=== PATIENT | male | born 1960 | race African-American/Black ===

== ENCOUNTER 2024-06-20 08:44 | Emergency (ER) | payer MEDICARE, MEDICAID ==
[~2024-06-20] VITALS: Ht 177.8 cm; Wt 81.6 kg
[2024-06-20 08:47] VITALS: O2SAT 98
[2024-06-20 09:06] VITALS: BP 123/78; PULSE 98; RESP 16; TEMP 36.8; O2SAT 99
[2024-06-20 09:33] LABS: BASOPHILS % 0.4 % (0.0-2.0); EOSINOPHILS % 0.1 % (0.0-5.0); HEMATOCRIT. 43.2 % (42.0-52.0); HEMOGLOBIN. 14.5 g/dL (14.0-18.0); LYMPHOCYTES % 18.3 % (20.0-50.0); MEAN CORPUSCULAR HEMOGLOBIN 29.9 pg (28.0-32.0); MEAN CORPUSCULAR HGB CONC 33.7 g/dL (31.0-37.0); MEAN CORPUSCULAR VOLUME 88.8 fL (80.0-94.0); MEAN PLATELET VOLUME 8.7 fl (7.4-10.4); MONOCYTES % 8.1 % (2.0-8.0); NEUTROPHILS % 73.1 % (40.0-76.0); PLATELET 263 x1000/uL (130-400); RED BLOOD CELL COUNT 4.86 mill/uL (4.7-6.1)
[2024-06-20 09:45] LABS: CHLORIDE 105 mEq/L (98-107); POTASSIUM 4.3 mEq/L (3.5-5.1); SODIUM 140 mEq/L (136-145)
[2024-06-20 09:46] LABS: CALCIUM 9.8 mg/dL (8.7-10.4); CARBON DIOXIDE 28 mEq/L (21-32)
[2024-06-20 09:51] LABS: CREATININE 1.3 mg/dL (0.6-1.3); GLUCOSE 105 mg/dL (70-105); UREA NITROGEN BLOOD 10 mg/dL (9-23)
[2024-06-20 09:53] LABS: ALANINE AMINOTRANSFERASE 13 IU/L (10-49); ALBUMIN 4.3 g/dL (3.2-4.8); ASPARTATE AMINOTRANSFERASE 29 IU/L (<34); BILIRUBIN DIRECT 0.3 mg/dL (<=3.0); BILIRUBIN TOTAL 1.1 mg/dL (0.1-1.0); PROTEIN TOTAL 7.2 g/dL (6.0-8.3)
[2024-06-20 10:03] LABS: CLARITY URINE CLEAR (CLEAR); COLOR URINE YELLOW (YELLOW); GLUCOSE URINE NEGATIVE (NEGATIVE); KETONES URINE 1+ (NEGATIVE); LEUKOCYTE ESTERASE URINE NEGATIVE (NEGATIVE); NITRITE URINE NEGATIVE (NEGATIVE); OCCULT BLOOD URINE 1+ (NEGATIVE); PH URINE 5.5 (4.5-8.0); PROTEIN URINE NEGATIVE (NEGATIVE); SPECIFIC GRAVITY URINE 1.022 (1.005-1.030)
[2024-06-20 10:11] LABS: BACTERIA URINE NONE SEEN; RBC URINE 0-2 /hpf (0-2); SQUAMOUS EPITHELIAL CELL URINE RARE /lpf (RARE/1+); WBC URINE 0-2 /hpf (0-2); YEAST URINE NONE SEEN
[2024-06-20] MEDS: MAGNESIUM/ALUMINUM HYDROXIDE/SIMETHICONE 30ML UDC PO ONE (10:13)
[2024-06-20] MEDS: VISCOUS LIDOCAINE 2% 15 ML UDC MM SCH (10:13)
[2024-06-20] MEDS: FAMOTIDINE 20MG TABLET PO ONE (10:13)
== END 2024-06-20 12:42 | disposition home or self-care (01) ==
LOC: ER 08:44
DX: R10.9 Unspecified abdominal pain (principal)
CPT/HCPCS: 36415; 74176; 76705; 80048; 80076; 81003; 85025; 93005; 99284

== ENCOUNTER 2024-08-21 18:18 | Emergency (ER) | payer MEDICARE, MEDICAID ==
[~2024-08-21] VITALS: Ht 180.3 cm; Wt 71.7 kg
[2024-08-21 18:20] VITALS: BP 111/71; TEMP 36.7; O2SAT 100
[2024-08-21 18:30] VITALS: PULSE 89; RESP 17; O2SAT 97
== END 2024-08-22 00:49 | disposition left against medical advice (07) ==
LOC: ER 18:18
DX: R10.9 Unspecified abdominal pain (principal); Z53.21 Procedure and treatment not carried out due to patient leaving prior to being seen by health care provider

== ENCOUNTER → 2024-08-21 | Outpatient (CLI) | payer MEDICARE, MEDICAID ==
[~2024-08-21] MED LIST: BARIUM SULFATE 450ML ORAL SUSP ONE; IOHEXOL-300 100 ML BOTTLE ONE
== END | disposition home or self-care (01) ==
LOC: CT 07:35
PROVIDERS: ATTEND Internal Medicine Gastroenterology
DX: N40.0 Benign prostatic hyperplasia without lower urinary tract symptoms (principal); K57.90 Diverticulosis of intestine, part unspecified, without perforation or abscess without bleeding; K31.89 Other diseases of stomach and duodenum; K63.89 Other specified diseases of intestine; N32.89 Other specified disorders of bladder; M47.817 Spondylosis without myelopathy or radiculopathy, lumbosacral region; R10.84 Generalized abdominal pain; K58.9 Irritable bowel syndrome, unspecified; R63.4 Abnormal weight loss
CPT/HCPCS: 74177; Q9967